=== PATIENT | male | born 1975 | race African-American/Black ===

== ENCOUNTER 2021-04-06 12:27 | Emergency (ER) | payer OTHER ==
[~2021-04-06] VITALS: Ht 182.9 cm; Wt 85.0 kg
[2021-04-06] MEDS ORDERED: ZOFRAN4 M1 PO (14:03)
[2021-04-06 14:32] VITALS: BP 100/61
== END 2021-04-06 14:32 | disposition home or self-care (01) ==
LOC: ED 12:27
DX: U07.1 COVID-19 (principal); F17.210 Nicotine dependence, cigarettes, uncomplicated

== ENCOUNTER 2022-02-24 14:22 | Emergency (ER) | payer OTHER ==
[~2022-02-24] VITALS: Ht 182.9 cm; Wt 100.0 kg
[~2022-02-24 14:22] MED LIST: ZOFRAN4 M1 PO
[2022-02-24 14:28] VITALS: BP 126/88
[2022-02-24 14:31] VITALS: BP 123/85
[2022-02-24 15:00] LABS: HEMATOCRIT 42.2 % (39.0-50.0); HEMOGLOBIN 13.7 g/dl (14.0-18.0); IMMATURE GRANULOCYTES 0.1 % (0.0-5.0); MEAN CORPUSCULAR HGB 22.7 pG CALC (26.0-32.0); MEAN CORPUSCULAR HGB CONC 32.5 g/dL CAL (32.0-36.0); NEUT# 5.13 thou/uL (1.82-7.42); RED BLOOD COUNT 6.03 mill/uL (4.70-6.10); RED CELL DISTRI WIDTH 15.7 % (11.5-15.5)
[2022-02-24 15:11] LABS: ALBUMIN 5.1 g/dL (3.2-5.0); ALKALINE PHOSPHATASE 120 u/l (38-126); ANION GAP 14 (6-22 (CALC)); BILIRUBIN, TOTAL 0.7 mg/dL (0.0-1.4); BUN 12 mg/dL (9-20); BUN/CREATININE RATIO 11 (12-20 (CALC)); CARBON DIOXIDE 25 mmol/l (22-30); CHLORIDE 105 mmol/l (95-108); CREATININE 1.2 mg/dL (0.7-1.3); GFR FOR AFR.AMER. > 60 ML/MIN (>=60 (CALC)); GFR OTHER RACES > 60 ML/MIN (>=60 (CALC)); POTASSIUM 3.6 mmol/l (3.5-5.1); SGOT/AST 40 u/l (17-59); SODIUM 141 mmol/l (137-146); TOTAL PROTEIN 8.6 g/dL (6.3-8.2)
[2022-02-24 15:33] VITALS: BP 120/82
[2022-02-24 17:41] VITALS: BP 120/82
== END 2022-02-24 17:43 | disposition short-term general hospital (02) ==
LOC: ED 14:22
PROVIDERS: Family Medicine
DX: J36 Peritonsillar abscess (principal); F17.200 Nicotine dependence, unspecified, uncomplicated; Z20.822 Contact with and (suspected) exposure to COVID-19
CPT/HCPCS: Q9967

== ENCOUNTER 2022-02-26 07:41 | Emergency (ER) | payer OTHER ==
[~2022-02-26] VITALS: Ht 182.9 cm; Wt 100.0 kg
[2022-02-26] VITALS (7 sets, daily range): BP systolic 87–127; BP diastolic 44–82
[2022-02-26 08:31] LABS: HEMATOCRIT 38.2 % (39.0-50.0); HEMOGLOBIN 12.3 g/dl (14.0-18.0); IMMATURE GRANULOCYTES 0.1 % (0.0-5.0); MEAN CELL VOLUME 70.5 fL CALC (80.0-100.0); MEAN CORPUSCULAR HGB 22.7 pG CALC (26.0-32.0); MEAN CORPUSCULAR HGB CONC 32.2 g/dL CAL (32.0-36.0); NEUT# 4.7 thou/uL (1.82-7.42); RED BLOOD COUNT 5.42 mill/uL (4.70-6.10); RED CELL DISTRI WIDTH 15.2 % (11.5-15.5)
[2022-02-26 08:37] LABS: ALBUMIN 4.5 g/dL (3.2-5.0); ALKALINE PHOSPHATASE 124 u/l (38-126); ANION GAP 13 (6-22 (CALC)); BILIRUBIN, TOTAL 0.8 mg/dL (0.0-1.4); BUN 17 mg/dL (9-20); BUN/CREATININE RATIO 15 (12-20 (CALC)); CARBON DIOXIDE 22 mmol/l (22-30); CHLORIDE 110 mmol/l (95-108); CREATININE 1.2 mg/dL (0.7-1.3); GFR FOR AFR.AMER. > 60 ML/MIN (>=60 (CALC)); GFR OTHER RACES > 60 ML/MIN (>=60 (CALC)); POTASSIUM 3.5 mmol/l (3.5-5.1); SODIUM 141 mmol/l (137-146); TOTAL PROTEIN 8.2 g/dL (6.3-8.2)
[2022-02-26 08:47] LABS: SGOT/AST 78 u/l (17-59)
== END 2022-02-26 11:21 | disposition home or self-care (01) ==
LOC: ED 07:41
PROVIDERS: Family Medicine
DX: J36 Peritonsillar abscess (principal); F17.200 Nicotine dependence, unspecified, uncomplicated
CPT/HCPCS: Q9967

== ENCOUNTER 2023-10-22 12:11 | Emergency (ER) | payer OTHER ==
[~2023-10-22] VITALS: Ht 182.9 cm; Wt 104.0 kg
[~2023-10-22 12:11] MED LIST changes: +FLEXERIL5 M1 PO; +NAPROXEN500 MG PO
[2023-10-22 12:39] VITALS: BP 116/79
[2023-10-22 12:45] VITALS: BP 113/83
[2023-10-22] MEDS ORDERED: Diph, Acellular Pertussis, Tet 0.5 ML/VIAL (Tdap) SDV IM ONE (12:45)
[2023-10-22 13:00] VITALS: BP 113/83
== END 2023-10-22 13:03 | disposition home or self-care (01) ==
LOC: ED 12:11
DX: S61.011A Laceration without foreign body of right thumb without damage to nail, initial encounter (principal); W26.0XXA Contact with knife, initial encounter; Z72.0 Tobacco use

== ENCOUNTER 2023-10-30 04:05 | Emergency (ER) | payer OTHER ==
[~2023-10-30] VITALS: Ht 182.9 cm; Wt 104.0 kg
[2023-10-30] MEDS ORDERED: SULFAMETHOXAZOLE W/TRIMETHOPRI 1 COMBO TAB PO ONE (04:40)
[2023-10-30] MEDS ORDERED: TETRACAINE HCL 0.5 %/4 ML SOL OD ONE (04:40)
[2023-10-30] MEDS ORDERED: BACTRIM DS1 TAB PO (04:43)
[2023-10-30 05:08] VITALS: BP 130/89
== END 2023-10-30 05:08 | disposition home or self-care (01) ==
LOC: ED 04:05
DX: H66.91 Otitis media, unspecified, right ear (principal); Z72.0 Tobacco use